=== PATIENT | male | born 1935 | race Caucasian/White ===

== ENCOUNTER 2019-11-21 10:45 | Inpatient (IN) | payer MEDICARE, OTHER ==
[~2019-11-21] VITALS: Ht 170.2 cm; Wt 81.6 kg
--- NOTE | 2019-11-21 11:14 | NUR ---
covid swab done and sent to lab
--- NOTE | 2019-11-21 11:22 | NUR ---
[id number] home c/o fever, temp 103 F at 0930. 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 f/c placed at [place] yesterday. PT AAOX3, RR EVEN & UNLABORED. DENIES CP, SOB, DIZZINESS, N/V/D AT THIS TIME. PT SEEN & EVAL'D BY DR. DURHAM. WILL CONT TO MONITOR.
[2019-11-21 11:56] LABS: BASOPHILS % (AUTO) 0.3 % (0.0-2.0); EOSINOPHILS % (AUTO) 0.2 % (0.0-6.0); HEMATOCRIT 28 % (39-51); HEMOGLOBIN 8.8 g/dL (13.5-17.5); LYMPHOCYTES # (AUTO) 0.3 /CMM (0.8-4.8); LYMPHOCYTES % (AUTO) 3.1 % (20.0-44.0); MEAN CORPUSCULAR HGB CONC 32 g/dl (31.0-36.0); MEAN CORPUSCULAR VOLUME 77 fL (80-96); MONOCYTES # (AUTO) 1.2 /CMM (0.1-1.30); MONOCYTES % (AUTO) 14.7 % (2.0-12.0); NEUTROPHILS # (AUTO) 6.9 /CMM (1.8-8.9); NEUTROPHILS % (AUTO) 81.7 % (43.0-81.0); PLATELET COUNT (AUTO) 69 /CMM (150-450); RED BLOOD CELL COUNT(AUTO) 3.57 MIL/uL (4.5-6.0); WHITE BLOOD COUNT (AUTO) 8.5 K/uL (4.3-11.0)
[2019-11-21 12:05] LABS: CALCIUM, SERUM 8.8 mg/dL (8.5-10.1); CARBON DIOXIDE 25 mmol/L (21-32); CHLORIDE 104 mmol/L (98-107); CREATININE 1.6 mg/dL (0.6-1.3); GLUCOSE 112 mg/dL (74-106); POTASSIUM 3.7 mmol/L (3.5-5.1); SODIUM SERUM 139 mmol/L (136-145); UREA NITROGEN, BLOOD 24 mg/dL (7-18)
[2019-11-21 12:43] LABS: APPEARANCE,URINE Cloudy (CLEAR); BILIRUBIN,URINE Negative (NEGATIVE); BLOOD, URINE Large Ery/uL (NEGATIVE); COLOR,URINE Yellow (YELLOW); KETONES,URINE Negative (NEGATIVE); LEUKOCYTE ESTERASE ,URINE Large (NEGATIVE); NITRITE, URINE Negative (NEGATIVE); PH,URINE 6.5 (5.0-8.0); PROTEIN,URINE >=300 mg/dl (NEGATIVE); UGLUCOSE Negative (NEGATIVE); UROBILINOGEN,URINE 0.2 EU/dL (0.2)
[2019-11-21 12:49] LABS: BACTERIA,URINE Few /HPF (None Seen); SQUAMOUS EPITHELIAL CELL,UR None Seen /HPF (None Seen)
[2019-11-21] MEDS ORDERED: TAMS-12 PO (12:53)
[2019-11-21] MEDS ORDERED: NEBI10TA2 PO (12:53)
[2019-11-21] MEDS ORDERED: ICOS1CAP PO (12:53)
[2019-11-21] MEDS ORDERED: AMLO5TAB9 PO (12:53)
[2019-11-21] MEDS ORDERED: ALLO100T PO (12:53)
[2019-11-21] MEDS ORDERED: LEVO50TA8 PO (12:53)
[2019-11-21] MEDS ORDERED: folic acid PO (12:53)
[2019-11-21] MEDS ORDERED: FINA5TAB3 PO (12:53)
[2019-11-21] MEDS ORDERED: FERR325T29 PO (12:53)
[2019-11-21] MEDS ORDERED: ZOLP5TAB8 PO (12:53)
[2019-11-21] MEDS ORDERED: LOSA100T31 PO (12:53)
[2019-11-21] MEDS ORDERED: CEPH500T PO (12:53)
--- NOTE | 2019-11-21 13:51 | NUR ---
MOVE SHEET SUBMITTED AND CALLED FOR [facility] BED.
[2019-11-21] MEDS ORDERED: IV NS 0.9% 500 ML BAG IV ONE (14:00)
[2019-11-21] MEDS ORDERED: CEFTRIAXONE 1GM BAG (ER ONLY) 1 GM/50 ML PIGGYBACK IV ONE (14:00)
[2019-11-21] MEDS ORDERED: CEFTRIAXONE 1 G in IV D5W 50 ML IV ONE (14:30)
[2019-11-21 14:52] LABS: BAND % (MANUAL) 5 % (0.0-5.0); LYMPHOCYTES % (MANUAL) 2 % (16-48); MONOCYTES % (MANUAL) 12 % (0-11.0); NEUTROPHILS % (MANUAL) 81 (42-76)
--- NOTE | 2019-11-21 15:06 | NUR ---
rocephine orders is double. verified with that pt is to only reciev one dose.
--- NOTE | 2019-11-21 15:18 | NUR ---
[facility] BED. 314-1
--- NOTE | 2019-11-21 15:26 | NUR ---
REPORT GIVEN TO ALISON GUEVARA FOR CHUCK.
--- NOTE | 2019-11-21 17:00 | NUR ---
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 A/o x4. Able to make needs known. No pain noted nor reported. On room air @ 97% with no SOB and not in respiratory distress. IV site clean, dry, patent and intact. Assessments done. Patient reported no skin issues and refused visual check when informed of body assessment to be done by nurse. Belonging forms signed. Awaiting orders. Will continue to monitor.
[2019-11-21 17:30] VITALS: BP 160/65
[2019-11-21] MEDS ORDERED: IV NS 0.9% 1,000 ML IV PRN (18:46)
[2019-11-21] MEDS ORDERED: ONDANSETRON HCL/PF 4 MG/2 ML VIAL IVP PRN (19:00)
[2019-11-21] MEDS ORDERED: ACETAMINOPHEN 325 MG TABLET PO PRN (19:00)
[2019-11-21] MEDS ORDERED: Z GUARD REMEDY 2 OZ OINT TP PRN (19:00)
--- NOTE | 2019-11-21 19:05 | NUR ---
RN CLOSING NOTES: Patient in bed. Awake, alert and oriented x4. No acute changes noted on patient. Dr. Salinas made aware of admission BP of 160/65mmhg. Endorsed to ALISON Griffith to f/u admission orders from Dr. Salinas.
--- NOTE | 2019-11-21 19:40 | NUR ---
MS RN OPENING NOTES RECEIVED PATIENT FROM MORNING SHIFT ALERT AND ORIENTED X 3. VERBALLY RESPONSIVE AND ABLE TO FOLLOW DIRECTIONS. BREATHING REGULAR AND UNLABORED ON ROOM AIR. LEFT AC G20 IV LINE INTACT AND FLUSHING WELL WITH NO BLEEDING OR S/S OF INFILTRATION NOTED. ROGERS CATH PATENT DRAINING CLOUDY ALY COLORED URINE WITH MODERATE AMOUNT ON BAG. DENIES SUICIDAL IDEATION OR PAIN/DISCOMFORT AT THIS TIME. BED LOW AND LOCKED ON SEMI FOWLERS POSITION. CALL LIGHT IN REACH. WILL CONTINUE TO MONITOR.
[2019-11-21 20:00] VITALS: BP 128/63
[2019-11-21 20:09] LABS: CREATININE, URINE 137.7 MG/DL (30.0-125.0); URINE TOTAL PROTEIN 383.8 mg/dL (0-11.9)
[2019-11-21] MEDS: TAMSULOSIN 0.4 MG CAP.SR.24H PO SCH (21:04)
--- NOTE | 2019-11-21 21:30 | NUR ---
MS RN NOTES COMPLAINED OF INABILITY TO STAY ASLEEP, AMBIEN 5MG GIVEN BY MOUTH. NON-PHARMACOLOGICAL INTERVENTIONS PROVIDED. WILL CONTINUE TO MONITOR.
[2019-11-21 22:00] VITALS: BP 128/63
[2019-11-21] MEDS ORDERED: ZOLPIDEM TARTRATE 5 MG TABLET PO SCH (22:00)
--- NOTE | 2019-11-22 06:25 | NUR ---
MS RN CLOSING NOTES PATIENT IN BED ALERT AND ORIENTED X 3. AFEBRILE WITH NO S/S OF DISTRESS OBSERVED. LEFT AC G20 IV LINE INTACT AND INFUSING WELL. ROGERS CATH PATENT DRAINING CLEAR ALY COLORED URINE WITH 200cc OUTPUT. NO COMPLAINTS OF PAIN/DISCOMFORT REPORTED THE WHOLE SHIFT. BED LOW AND LOCKED ON SEMI FOWLERS POSITION. CALL LIGHT IN REACH. WILL ENDORSE TO MORNING SHIFT FOR CHUCK.
[2019-11-22 07:29] LABS: BASOPHILS % (AUTO) 0.4 % (0.0-2.0); EOSINOPHILS % (AUTO) 0.3 % (0.0-6.0); HEMATOCRIT 25 % (39-51); HEMOGLOBIN 7.9 g/dL (13.5-17.5); LYMPHOCYTES # (AUTO) 0.3 /CMM (0.8-4.8); LYMPHOCYTES % (AUTO) 5.2 % (20.0-44.0); MEAN CORPUSCULAR HGB CONC 32 g/dl (31.0-36.0); MEAN CORPUSCULAR VOLUME 76 fL (80-96); MONOCYTES # (AUTO) 0.7 /CMM (0.1-1.30); MONOCYTES % (AUTO) 14.3 % (2.0-12.0); NEUTROPHILS % (AUTO) 79.8 % (43.0-81.0); PLATELET COUNT (AUTO) 68 /CMM (150-450); RED BLOOD CELL COUNT(AUTO) 3.26 MIL/uL (4.5-6.0)
[2019-11-22] MEDS ORDERED: LEVOTHYROXINE SODIUM 50 MCG TABLET PO SCH (07:30)
[2019-11-22 07:50] LABS: IRON, SERUM 9 ug/dl (50-175); TOTAL IRON BINDING CAPACITY 308 ug/dl (250-450)
[2019-11-22 07:57] LABS: CHOLESTEROL 134 mg/dL (<200); CREATINE KINASE, TOTAL 72 U/L (39-308); HDL CHOLESTEROL 33 mg/dL (40-60); LDL 88 mg/dL (0-99); TRIGLYCERIDES 84 mg/dL (30-150)
[2019-11-22 07:59] LABS: ALANINE AMINOTRANSFERASE 24 U/L (12-78); ALBUMIN 2.9 g/dL (3.4-5.0); ALKALINE PHOSPHATASE 109 U/L (46-116); ASPARTATE AMINOTRANSFERASE 16 U/L (15-37); BILIRUBIN,TOTAL 0.8 mg/dL (0.2-1.0); CARBON DIOXIDE 23 mmol/L (21-32); CHLORIDE 104 mmol/L (98-107); CREATININE 1.5 mg/dL (0.6-1.3); GLUCOSE 119 mg/dL (74-106); MAGNESIUM 2.3 mg/dL (1.8-2.4); PHOSPHORUS 3.1 mg/dL (2.5-4.9); POTASSIUM 3.7 mmol/L (3.5-5.1); SODIUM SERUM 138 mmol/L (136-145); TOTAL PROTEIN, SERUM 5.8 g/dL (6.4-8.2); UREA NITROGEN, BLOOD 23 mg/dL (7-18)
[2019-11-22 08:00] VITALS: BP 141/70
[2019-11-22 08:26] LABS: LYMPHOCYTES % (MANUAL) 9 % (16-48); MONOCYTES % (MANUAL) 11 % (0-11.0); NEUTROPHILS % (MANUAL) 80 (42-76)
[2019-11-22] MEDS ORDERED: FINASTERIDE (5 MG) 5 MG TABLET PO SCH (09:00)
[2019-11-22] MEDS ORDERED: FOLIC ACID 1 MG TABLET PO SCH (09:00)
[2019-11-22] MEDS ORDERED: AMLODIPINE BESYLATE 5 MG TABLET PO SCH (09:00)
[2019-11-22] MEDS ORDERED: LOSARTAN POTASSIUM 50 MG TABLET PO SCH (09:00)
[2019-11-22] MEDS: FERROUS SULFATE (325 MG) 325 MG/TAB TABLET PO SCH ×2 (09:00→17:39)
[2019-11-22] MEDS: CARVEDILOL 12.5 MG TABLET PO SCH ×2 (09:00→17:40)
[2019-11-22] MEDS ORDERED: ALLOPURINOL 100 MG TABLET PO SCH (09:00)
[2019-11-22 10:00] VITALS: BP 141/73
[2019-11-22 13:18] LABS: FERRITIN 65 ng/mL (8-388)
[2019-11-22] MEDS ORDERED: HYDROCODONE/APAP 5/325MG 1 EACH TABLET PO PRN (13:30)
--- NOTE | 2019-11-22 13:34 | NUR ---
rn notes administered narco 5/325 mg po prn for mid abdomen pain 11/01 per patient request, v/s wnl. continued monitoring.
[2019-11-22] MEDS ORDERED: CEFTRIAXONE 1 G in IV D5W 50 ML IV SCH (14:00)
[2019-11-22] MEDS ORDERED: CEPH500T PO (14:56)
[2019-11-22] MEDS ORDERED: DUTA0.5C PO (14:56)
--- NOTE | 2019-11-22 17:30 | NUR ---
COMPUTER REPAIRER NOTES PATIENT DISCHARGE AT THIS TIME GOING HOME. PATIENT STABLE, REFUSED PAIN. MED RECONCILIATION AND DISCHARGE ORDER REVIEWED AND EXPLAINED TO THE PATIENT. PATIENT WILL FOLLOW OUTPATIENT UROLOGIST [facility] TOMORROW. PRESCRIPTION SANDED ELECTRONICALLY VIA HOSPITALIST. BELONGING WITH THE PATIENT. PATIENT DISCHARGE WITH ROGERS CATHETER. ESCORTED PATIENT TO THE LOBBY FOR SAFETY . PATIENT RESPIRATORY ASSISTANT BY DAUGHTER.
[2019-11-22 17:40] VITALS: BP 119/61
[2019-11-22] MEDS: TAMSULOSIN 0.4 MG CAP.SR.24H PO SCH (17:40)
[2019-11-23 08:07] LABS: PTH, INTACT 41 pg/mL (15-65)
[2019-11-23 15:16] LABS: *SPE A/G RATIO 1.2 (0.7-1.7); *SPE ALBUMIN 2.9 g/dL (2.9-4.4); *SPE ALPHA-1-GLOBULIN 0.5 g/dL (0.0-0.4); *SPE ALPHA-2-GLOBULIN 0.9 g/dL (0.4-1.0); *SPE BETA GLOBULIN 0.6 g/dL (0.7-1.3); *SPE GLOBULIN, TOTAL 2.4 g/dL (2.2-3.9); *SPE M-SPIKE Not Observed g/dL (Not Observed); *SPEGAMMA GLOBULIN 0.5 g/dL (0.4-1.8)
== END 2019-11-22 17:45 | disposition home or self-care (01) | DRG 689 ==
LOC: ER 10:51 → MED 15:39
PROVIDERS: ADMIT Nurse Practitioner Acute Care; ATTEND Nurse Practitioner Acute Care
DX: N39.0 Urinary tract infection, site not specified (principal); N17.0 Acute kidney failure with tubular necrosis; N13.8 Other obstructive and reflux uropathy; D69.6 Thrombocytopenia, unspecified; E03.9 Hypothyroidism, unspecified; I10 Essential (primary) hypertension; M10.9 Gout, unspecified; Z85.038 Personal history of other malignant neoplasm of large intestine; D50.9 Iron deficiency anemia, unspecified; Z79.899 Other long term (current) drug therapy; N40.1 Benign prostatic hyperplasia with lower urinary tract symptoms; R33.8 Other retention of urine
CPT/HCPCS: 36415; 71045-TC; 76770-TC; 80048-TC; 80053-TC; 80061-TC; 81000-TC; 82550-TC; 82570-TC; 82728-TC; 83540-TC; 83735-TC; 83970; 84100-TC; 84155; 84155-TC; 84165; 84300-TC; 85025-TC; 87081-TC; 87086-TC; 87186-TC; 93307-TC; G0378; J0696; J7030; J7040; J7060